=== PATIENT | female | born 1985 | race Caucasian/White ===

== ENCOUNTER 2016-03-02 19:44 | Emergency (ER) | payer BC, OTHER ==
[2016-03-02 20:36] VITALS: BP 138/81
[2016-03-02] MEDS ORDERED: Ibuprofen TAB* 600 MG PO ONE (20:59)
--- NOTE | 2016-03-02 21:04 | UC ---
Lower Extremity/Ankle HPI - HPI Summary HPI Summary: While walking outside earlier this evening, turned L ankle and had immediate pain. Ankle immediately swelled up, and pt is now limping. - History of Current Complaint Chief Complaint: UCLowerExtremity Stated Complaint: LEFT ANKLE INJURY Time Seen by Provider: 03/02/16 20:54 Hx Obtained From: Patient Hx Last Menstrual Period: 02/07/16 ?: No Onset/Duration: Sudden Onset Severity Initially: Moderate Severity Currently: Moderate Aggravating Factor(s): Standing, Ambulation Alleviating Factor(s): Rest Able to Bear Weight: Yes - Allergies/Home Medications Allergies/Adverse Reactions: Allergies Allergy/AdvReac Type Severity Reaction Status Date / Time No Known Allergies Allergy Verified 03/02/16 20:35 Home Medications: Home Medications FLUoxetine* [Prozac*] 10 mg PO DAILY 03/02/16 [History Confirmed 03/02/16] PMH/Surg Hx/FS Hx/Imm Hx - Surgical History Surgical History: Yes Surgery Procedure, Year, and Place: T&A at age 5. surgical removal of ear tubes. - Family History Known Family History: Positive: Hypertension - Social History Occupation: Employed Full-time - teacher Lives: With Family Alcohol Use: "a glass of wine three or four times a week" Substance Use Type: None Smoking Status (MU): Never Smoked Tobacco - Immunization History Most Recent Influenza Vaccination: Not the Season Review of Systems Constitutional: Negative Skin: Negative Eyes: Negative ENT: Negative Respiratory: Negative Cardiovascular: Negative Gastrointestinal: Negative Genitourinary: Negative Motor: Negative Neurovascular: Negative Musculoskeletal: Arthralgia Neurological: Negative Psychological: Negative All Other Systems Reviewed And Are Negative: Yes Physical Exam Triage Information Reviewed: Yes Appearance: Well-Appearing, No Pain Distress, Well-Nourished Vital Signs: Initial Vital Signs Temp 99.6 F 03/02/16 20:32 Pulse 83 03/02/16 20:32 Resp 16 03/02/16 20:32 BP 138/81 03/02/16 20:32 Vital Signs Reviewed: Yes Eye Exam: Normal Eyes: Positive: Conjunctiva Clear ENT Exam: Normal ENT: Positive: Normal ENT inspection, Hearing grossly normal, Pharynx normal, TMs normal Dental Exam: Normal Neck exam: Normal Neck: Positive: Supple, Nontender, No Lymphadenopathy Respiratory Exam: Normal Respiratory: Positive: Chest non-tender, Lungs clear, Normal breath sounds, No respiratory distress, No accessory muscle use Cardiovascular Exam: Normal Cardiovascular: Positive: RRR, No Murmur Musculoskeletal: Positive: ROM Limited @ - L ankle Neurological Exam: Normal Psychological Exam: Normal Skin Exam: Normal Lower Extremity Course/Dx - Differential Dx/Diagnosis Provider Diagnoses: L ankle sprain Discharge - Discharge Plan Condition: Stable Disposition: HOME Patient Education Materials: Ankle Sprain (ED)
[2016-03-02] MEDS ORDERED: Ibuprofen PED LIQ* 100 MG/5 ML UDC PO ONE (21:06)
--- NOTE | 2016-03-02 21:56 | RAD ---
Indication: Lateral pain following inversion injury. Comparison: April 27, 2014 radiographs. Technique: AP, mortise, and lateral views LEFT ankle. REPORT AND IMPRESSION: Mild soft tissue swelling without focality. Negative for fracture, osteochondral lesion, or malalignment.
== END 2016-03-02 21:50 | disposition home or self-care (01) ==
LOC: UCCORT 19:44
DX: S93.402A Sprain of unspecified ligament of left ankle, initial encounter (principal); X50.1XXA Overexertion from prolonged static or awkward postures, initial encounter; Y93.01 Activity, walking, marching and hiking; Y92.89 Other specified places as the place of occurrence of the external cause
CPT/HCPCS: 99213; G0463